=== PATIENT | female | born 1970 | race Caucasian/White ===

== ENCOUNTER → 2022-02-05 15:29 | Outpatient (CLI) | payer MEDICARE, SELFPAY ==
[2022-02-05 16:37] LABS: COVID19 -Nasal RAPID Negative (Negative)
== END ==
PROVIDERS: PCP Physician Assistant; Visit Provider Obstetrics & Gynecology
DX: Z01.812 Encounter for preprocedural laboratory examination (principal); Z20.822 Contact with and (suspected) exposure to COVID-19
CPT/HCPCS: 87635

== ENCOUNTER 2022-02-06 07:56 | Day surgery (SDC) | payer MEDICARE, SELFPAY ==
[2022-02-04 09:43] VITALS: BMI 24.5
[2022-02-06] VITALS (9 sets, daily range): BP systolic 91–119; BP diastolic 44–75; PULSE 64–77; RESP 10–20; TEMP 36.4–37.1; O2SAT 99–100; BMI 24.5
--- NOTE | 2022-02-06 | PATH_ITS ---
[facility] Accession Number: [id number] . 01 Material submitted: . PART A: fallopian tube - BILATERAL FALLOPIAN TUBES AND FIBROID PART B: endometrium - ENDOMETRIAL CURETTINGS . 02 Diagnosis: A. Bilateral Fallopian Tubes and Fibroid, Bilateral Salpingectomies and Myomectomy: First-described fallopian tube, complete cross sections; negative for epithelial atypia or malignancy. Second-described fallopian tube, complete cross sections; negative for epithelial atypia or malignancy. Detached leiomyoma (17.5 cm in greatest dimension); negative for atypia or malignancy. . B. Endometrial Curettings: Portions of proliferative endometrium with patchy regions of stromal breakdown; negative for glandular hyperplasia, cytologic atypia or malignancy. [facility] 02/10/2022 1643 Local . 02 Electronically signed: . Ofelia Goldberg MD, Pathologist NPI- [id number] . 01 Gross description: . Received in two parts. . A. Received in formalin, labeled Natalie Soto and designated 1. Bilateral fallopian tubes and fibroid, are two undesignated fimbriated fallopian tubes and one detached nodule. The first fallopian tube is 6.5 cm long by 0.5 cm in diameter with a purple montoya, dusky outer surface and attached open fimbria. The second fallopian tube is 7.0 cm long by 0.5 cm in diameter with a dusky, purple outer surface with one 0.6 cm, smooth-walled, semitranslucent paratubal cyst filled with clear watery fluid and attached opened fimbria. The nodule is disrupted, 17.5 x 2.5 x 2.5 cm, with a slightly edematous, bone-white, whorled, rubbery cut surface with no hemorrhage, necrosis, or calcifications identified. No additional lesions are identified. Fiberglasser sections are submitted as follows: A1: Fiberglasser first fallopian tube with entire fimbria. A2: Fiberglasser second fallopian tube with entire fimbria. A3-A4: Fiberglasser nodule. B. Received in formalin, labeled Natalie Soto and designated 2. Endometrial curettings, is a 2.5 x 1.0 x 0.2 cm aggregate of red-bone, hemorrhagic tissue fragments, entirely submitted in cassette B1. ([id number]) /FRR 02/08/2022 1642 Local . 02 Pathologist provided ICD-10: N95.0, D25.2 . 02 CPT . 817005, 830057 Specimen Comment: A courtesy copy of this report has been sent to [phone] Specimen Comment: [id number] Performed at: 01 [facility] Cyt[facility] [address] [place] [address], [place], [place] [id number] MD Chidi Newton MD Phone: [phone] Performed at: 02 [facility] [id number] [place] [id number] MD Melinda Curtis MD Phone: [phone]
[2022-02-06] MEDS: LACTATED RINGERS 1,000 ML 100 ML IV (08:39)
[2022-02-06] MEDS: ACETAMINOPHEN IV 1,000 MG/100 ML VIAL 400 MG IV (09:16)
--- NOTE | 2022-02-06 09:21 | PM.HP.1 ---
History of Present Illness History of Present Illness Date Patient Seen: 02/06/22 Time Patient Seen: 09:22 Chief complaint: SDC Narrative: Patient is a 51-year-old 0 with a submucous and subserosal fibroid. Plan is laparoscopic removal of subserosal fibroid and bilateral salpingectomies. Hysteroscopic removal of submucosal fibroid. Patient History Medical History (Updated 02/04/22 @ 09:46 by Dulce Maria Mckeon RN) HLD (hyperlipidemia) Paranoid delusion Family & Social History Tobacco & Substance use: Smoking Status Never smoker alcohol intake former Substance Use Type does not use Meds Home Medications and Allergies Home Medications Medication Instructions Recorded Confirmed Type Lactobacillus acidophilus 1 100 mg PO DAILY 01/10/19 02/06/22 History billion cell capsule (Probiotic Gold Acidophilus) cholecalciferol (vitamin D3) 50 2,000 unit PO DAILY 01/10/19 02/06/22 History mcg (2,000 unit) capsule magnesium oxide 400 mg PO DAILY cap 01/10/19 02/06/22 History multivitamin with minerals 1 tab PO DAILY 01/10/19 02/06/22 History (Multiple Vitamin-Minerals) omega-3 fatty acids 1,000 mg 2,000 mg PO DAILY 01/10/19 02/06/22 History capsule (Fish Oil Concentrate) cyclosporine 0.05 % eye drops in a 1 drop EYE-BOTH BID each 08/05/19 02/06/22 History dropperette (Restasis) methocarbamol 500 mg tablet 500 mg PO QID PRN 08/05/19 02/06/22 History polyethylene glycol 3350 17 17 gram PO DAILY 08/05/19 02/06/22 History gram/dose oral powder (Miralax) psyllium husk 3.4 gram/5.4 gram 1 tbsp PO BID PRN 08/05/19 02/06/22 History oral powder (Metamucil) atorvastatin 40 mg tablet 40 mg PO DAILY 04/24/21 02/06/22 History bupropion HCl 300 mg 24 hr tablet, 300 mg PO QAM #90 tab 07/11/21 02/06/22 Rx extended release vortioxetine 20 mg tablet 20 mg PO DAILY #90 tab 07/11/21 02/06/22 Rx hydroxyzine pamoate 25 mg capsule 100 mg PO BEDTIME 90 Days #360 cap 12/17/21 02/06/22 Rx ziprasidone HCl 20 mg capsule 20 mg PO BID #180 cap MDD 200 mg 01/16/22 02/06/22 Rx ziprasidone HCl 80 mg capsule 80 mg PO BID #180 cap MDD 200 mg 01/16/22 02/04/22 Rx quetiapine 25 mg tablet 50 mg PO BEDTIME #60 tab 02/03/22 02/06/22 Rx oxycodone 5 mg tablet 5 mg PO Q4H PRN #20 tab 02/05/22 02/05/22 Rx Allergies Allergy/AdvReac Type Severity Reaction Status Date / Time cephalexin Allergy Severe Hives Verified 02/06/22 08:13 Exam Vital Signs (past 8 hours): - 02/06/22 08:41 Temperature 98.8 F Pulse Rate 64 Respiratory Rate 20 Blood Pressure 118/75 Pulse Oximetry 100 Oxygen Delivery Method Room Air Narrative Exam Narrative: HEENT: No thyromegaly, no anterior cervical or supraclavicular lymphadenopathy. Lungs:Clear to auscultation bilaterally, no wheezes. Cardiovascular: Regular rate and rhythm, no murmurs, rubs, or gallops. Abdomen: No scars. No hepatosplenomegaly. No masses palpable. External genitalia: Normal Vagina: Normal Cervix: Normal Bimanual exam: 10 Week size uterus. Mobile. Fibroid palpable at the fundus. Extremities: No edema Assessment & Plan Assessment & Plan narrative: Assessment: 51-year-old 0 with submucosal and subserosal fibroids Plan: Laparoscopic resection of subserosal fibroid and bilateral salpingectomy Hysteroscopic resection of submucosal fibroid The risks, benefits, and alternatives to the procedures were explained to the patient. The risks including bleeding, infection, injury to the bowel, bladder, ureters, or uterine perforation. She understands all of these risks and agrees to proceed. A full par Q was held and consent form was signed. COVID-19 COVID-19 status: Negative Result date/Date tested (Pos, Neg/Pending): 02/05/22 Time Spent With Patient Time with patient: less than 30 minutes Critical Care time: I spent a total of [] minutes of critical care time on this patient's care today; this time is exclusive of procedural time.
--- NOTE | 2022-02-06 09:29 | PM.PREOP ---
Pre-operative Note COVID-19 COVID-19 status: Negative Result date/Date tested (Pos, Neg/Pending): 02/05/22 Criteria for continued procedure: Non-surgical alternatives not available or appropriate per current SOC Interval Note History & Physical reviewed/Exam performed by Physician: Yes Changes to H&P: No H&P completed within 30 days and has changed as indicated here:: 02/06/22
--- NOTE | 2022-02-06 09:45 | SUR.OPER ---
Lithotomy on padded OR bed, head on pillow, arms secured on padded arm boards at <90 degrees abduction. Legs secured in padded yellow fins stirrups.
[2022-02-06] MEDS: BUPIVACAINE 0.5% (PF) 30 ML, EPINEPHrine 0.15 MG INJ (10:51)
--- NOTE | 2022-02-06 12:02 | PM.GYNOP.1 ---
Operative Date/Time/Diagnoses Date of procedure: 02/06/22 Time of procedure: 12:02 Pre-op diagnosis: Pedunculated subserosal fibroid submucosal fibroid Menorrhagia Desires sterilization Post-op diagnosis: same Procedure & Clinicians Procedure: Procedures Operation Date: 02/06/22 09:45 Actual Procedure Side Surgeon p D&C Hysteroscopy with curretings MD eufemia Rivera Laparoscopic myomectomy, bilateral salpingectomy Susan Aponte MD Indications: Submucosal fibroid Subserosal fibroid Menorrhagia Desires sterilization Surgeon: Susan Aponte Building Construction Teacher: Nell Duffy Anesthesia Type: General and Local Operative Notes Findings: 8 week size anteverted uterus 12 cm pedunculated mass on the posterior left uterus Normal tubes and ovaries Normal liver, gallbladder, and appendix Closure Type: primary Specimen(s): left tube, right tube and other (uterine mass, poss fibroid) Estimated blood loss (mL): 5 Blood products transfused: none Procedure in detail: After informed consent was obtained, the patient was taken to the operating room where she was placed in the dorsal supine position. After adequate general endotracheal anesthesia was achieved, she was placed in the dorsal lithotomy position, and prepped and draped in the usual sterile fashion. A time-out was performed. A bivalve speculum was placed into the vagina and the anterior lip of the cervix was grasped with a single-tooth tenaculum. Cervical os was sequentially dilated until the Zumi uterine manipulator could pass easily into the endometrial cavity. The single-tooth tenaculum was removed from the anterior lip of the cervix. The bivalve speculum was removed from the vagina. Attention was then turned to the abdomen where 6 cc of 0.5% Marcaine with epinephrine were injected in the umbilical fold. A 5 mm incision was made. The Veress needle was placed into the peritoneal cavity, and its placement confirmed by aspiration and drop test. The abdominal cavity was insufflated with 3.4 L of CO2. The Veress needle was removed, and a 5 mm trocar was placed without difficulty. Two other incisions were made 4 cm lateral to the midline after 6 cc of 0.5% Marcaine with epinephrine were injected. Two 5 mm trocars were placed under direct visualization. The right tube was grasped with an atraumatic grasper. The mesosalpinx on the right side was cauterized and cut with the LigaSure. The tube was amputated at the cornua of the uterus. This was repeated on the patient's right tube. There was a large sub serosal fibroid that was pedunculated on the left side of the posterior fundus of the uterus. The fibroid was grasped with a single-tooth tenaculum. Using the Tina loop around the pedicle of the fibroid, fibroid was amputated. 6 cc of 0.5% Marcaine with epinephrine were injected above the pubic symphysis. A 12 mm incision was made. A 12 mm trocar was placed under direct visualization. The endobag was placed through the suprapubic incision. The fibroid and both tubes were placed into the bag. The trocar was removed and the edges of the bag were brought up through the incision. An Tolu was placed into the bag. The fibroid was morcellated in 2 pieces. The tubes were removed from the bag. The bag was removed from the abdomen. The fascia was reapproximated with 0 Vicryl. The abdomen was re-insufflated. There was no bleeding noted from any of pedicles. The instruments were removed from the abdomen. The CO2 was allowed to escape. The suprapubic incision was closed on the subcutaneous layer with 2 simple interrupted sutures with 3-0 Vicryl. All of the incisions were closed with 4-0 Monocryl in a subcuticular fashion. Steri-Strips and Allevyn dressings were placed. The Zumi uterine manipulator was removed from the uterus. The bivalve speculum was placed into the vagina. The single-tooth tenaculum was placed on the anterior lip of the cervix. The cervix was dilated until the hysteroscope could pass easily into the endometrial cavity. No fibroids or polyps were visualized. The hysteroscope was removed. The single-tooth tenaculum was removed from the anterior lip of the cervix. The bivalve speculum was removed from the vagina. Sponge, lap, and instrument counts were correct x2. The patient tolerated the procedure well, and was taken to PACU in stable condition. Complications: none Post-operative Condition: stable Disposition: PACU Plan for aftercare: Home after recovery
== END 2022-02-06 12:55 | disposition home or self-care (01) ==
PROVIDERS: PCP Physician Assistant; Referring Provider Obstetrics & Gynecology; Visit Provider Obstetrics & Gynecology
PROC: 0UDB8ZZ Extraction of Endometrium, Via Natural or Artificial Opening Endoscopic (ICD-10-PCS; CPT 58558; principal; 2022-02-06 09:45)
PROC: 0UB94ZZ Excision of Uterus, Percutaneous Endoscopic Approach (ICD-10-PCS; CPT 58545; 2022-02-06 09:45)
DX: D25.2 Subserosal leiomyoma of uterus (principal); D25.0 Submucous leiomyoma of uterus; N95.0 Postmenopausal bleeding; Z30.2 Encounter for sterilization
CPT/HCPCS: 58545; 58558; 58661; J0131; J0171; J1100; J1885; J2250; J2405; J2704; J3010

== ENCOUNTER → 2022-05-03 12:10 | Outpatient (CLI) | payer MEDICARE, SELFPAY ==
--- NOTE | 2022-05-03 12:11 | DI.US.S_ITS ---
PROCEDURE: US PELVIC COMPLETE INDICATIONS: PMB TECHNIQUE: Real-time scanning was performed of the pelvic organs, with image documentation. Additional endovaginal scanning was necessary due to incomplete visualization of the adnexal and endometrial structures by transabdominal scanning. COMPARISON: [facility] Ultrasound, US, US PELVIC COMPLETE WITH TRANSVAGINAL, 05/02/2021, 12:12. FINDINGS: Uterus: Uterus is anteverted and normal in size at 7.7 x 3.2 x 4.6 cm. The myometrium is somewhat heterogeneous in appearance. There is a subserosal fibroid along the right posterior aspect measuring 1.2 x 1.2 x 0.9 cm. The endometrium measures four mm combined thickness. Cervix demonstrates a complex nabothian cyst measuring up to 1.3 cm in greatest diameter. Ovaries: The right ovary measures 2.9 x 1.7 x 1.6 cm. The left ovary measures 3.8 x 2.3 x 3.4 cm. Mild internal arterial venous waveforms are documented bilaterally. There are bilateral physiologic follicles. Within left ovary is a dominant follicle measuring up to 2.6 cm. In addition there is a complex heterogeneous lesion with posterior acoustic enhancement with peripheral vascularity measuring 1.6 x 1.2 x 1.3 cm. There is questionable internal vascularity on color imaging. Other: Trace amount of free fluid noted adjacent to the right ovary. IMPRESSION: Endometrium measures 4 mm in thickness. Heterogeneity of the myometrium is nonspecific but may be seen in the setting of adenomyosis. 1.6 cm left ovarian lesion which may represent a complex hemorrhagic cyst, however given questionable internal vascularity, solid lesion not completely excluded. Recommend short-term follow-up in approximately 6-12 weeks versus MRI. Small amount of fluid within the right adnexa, likely physiologic. Subserosal fibroid measuring up to 1.2 cm. We strive to produce accurate, complete, and clear reports of imaging services. To assist us in improving patient care, this report was composed using standard report templates and voice recognition software. Therefore, it may contain abnormal punctuation, insertions and/or omissions. Occasional wrong-word or sound-alike substitutions may occur. Though we review the report and make efforts to correct it, we do recommend that the report be read carefully in proper context to recognize any text inaccuracies. Dictated by: Akshat Schwartz D.O. on 05/03/2022 at 15:18 Approved by: Akshat Schwartz D.O. on 05/03/2022 at 15:29
== END ==
PROVIDERS: PCP Physician Assistant; Referring Provider Obstetrics & Gynecology; Visit Provider Obstetrics & Gynecology
DX: N95.0 Postmenopausal bleeding (principal); D25.2 Subserosal leiomyoma of uterus; N83.9 Noninflammatory disorder of ovary, fallopian tube and broad ligament, unspecified
CPT/HCPCS: 76830; 76856

== ENCOUNTER → 2022-08-15 11:00 | Outpatient (CLI) | payer MEDICARE, SELFPAY ==
--- NOTE | 2022-08-15 11:02 | DI.US.S_ITS ---
PROCEDURE: US PELVIC COMPLETE INDICATIONS: 3 month F/U PMB TECHNIQUE: Real-time scanning was performed of the pelvic organs, with image documentation. Additional endovaginal scanning was necessary due to incomplete visualization of the adnexal and endometrial structures by transabdominal scanning. COMPARISON: [facility], US, US PELVIC COMPLETE, 05/03/2022, 12:39. FINDINGS: Uterus: Uterus is anteverted and normal in size at 7.4 x 4.6 x 3.5 cm. The myometrium is homogeneous. The endometrium measures 11 mm combined thickness. Right posterior intramural fibroid measuring 1.1 x 1.1 x 0.7 cm. Nabothian cysts with internal echoes is unchanged. No internal blood flow. Ovaries: The right ovary measures 2.4 x 1.9 x 1.1 cm, with a calculated ovarian volume of 3 cc. The left ovary measures 3.9 x 2.1 x 2 cm, with a calculated ovarian volume of 9 cc. The ovaries have a normal sonographic appearance. Less than 12 follicles can be seen in each ovary. Left ovarian echogenic cyst measuring 1.4 x 1.2 x 1.2 cm, (previously 1.6 x 1.3 x 1.2 cm). There is peripheral vascular flow. Left ovarian anechoic cyst with thin septation measuring 1.9 x 1.6 x 1.2 cm, (previously 2.6 cm). No internal blood flow. Other: No pathologic free abdominal or pelvic fluid. IMPRESSION: 1. Left ovarian echogenic cyst measuring 1.4 cm is slightly decreased in size. Suspect complicated cyst. -Follow-up pelvic ultrasound in 6 months is recommended. This could also be further evaluated with pelvic MRI with IV contrast. 2. Left ovarian mildly complex cyst measuring 1.9 cm is decreased in size. 3. Endometrium measures 11 mm in this postmenopausal patient with bleeding. -Recommend endometrial biopsy if not yet performed. 4. Small intramural uterine fibroid. We strive to produce accurate, complete, and clear reports of imaging services. To assist us in improving patient care, this report was composed using standard report templates and voice recognition software. Therefore, it may contain abnormal punctuation, insertions and/or omissions. Occasional wrong-word or sound-alike substitutions may occur. Though we review the report and make efforts to correct it, we do recommend that the report be read carefully in proper context to recognize any text inaccuracies. Dictated by: Jared Lutz M.D. on 08/15/2022 at 15:19 Approved by: Jared Lutz M.D. on 08/15/2022 at 15:29
== END ==
PROVIDERS: PCP Physician Assistant; Referring Provider Obstetrics & Gynecology; Visit Provider Obstetrics & Gynecology
DX: N95.0 Postmenopausal bleeding (principal); D25.1 Intramural leiomyoma of uterus; N83.292 Other ovarian cyst, left side
CPT/HCPCS: 76830; 76856